=== PATIENT | female | born 1970 | race Asian ===

== ENCOUNTER 2022-03-31 06:52 | Day surgery (SDC) | payer MEDICAID ==
[~2022-03-31] VITALS: Ht 154.9 cm; Wt 56.7 kg
[2022-03-31 07:16] LABS: HCG,QUAL RESULT NEGATIVE (NEGATIVE)
[2022-03-31] MEDS ORDERED: MEPERIDINE 100 MG INJ. 100 MG/ML VIAL ONE (07:56)
[2022-03-31] MEDS: MIDAZOLAM HCL 5 MG/5 ML VIAL ONE ×3 (08:42→08:52)
[2022-03-31 15:35] VITALS: BP_SYST 99
== END 2022-03-31 10:35 | disposition home or self-care (01) ==
LOC: SDS 06:52 → SMU 06:53 → SDS 10:35
PROVIDERS: ATTEND Internal Medicine Gastroenterology
DX: Z12.11 Encounter for screening for malignant neoplasm of colon (principal); Z20.822 Contact with and (suspected) exposure to COVID-19; Z79.899 Other long term (current) drug therapy
CPT/HCPCS: 36415; 45378; 84703; 99152; U0003; G0378; J2250; J2175